=== PATIENT | female | born 1950 | race Caucasian/White ===

== ENCOUNTER → 2016-05-31 | Outpatient (CLI) | payer MEDICARE, OTHER | LOC: RAD 13:12 | PROVIDERS: ATTEND Physician Assistant | DX: M25.572 Pain in left ankle and joints of left foot (principal) ==

== ENCOUNTER → 2016-07-11 | Outpatient (CLI) | payer MEDICARE, OTHER | LOC: RAD 09:23 | PROVIDERS: ATTEND Psychiatry & Neurology Neurology | DX: R41.3 Other amnesia (principal) | CPT/HCPCS: 70450 ==

== ENCOUNTER → 2016-11-26 | Outpatient (CLI) | payer MEDICARE, OTHER ==
--- NOTE | 2016-11-26 15:11 | RADIOLOGY REPORT (SQ) ---
EXAM DESCRIPTION: CT SINUSES FOR ENT COMPLETED DATE/TIME: 11/26/2016 2:33 pm REASON FOR STUDY: RECURRENT SINUSITIS J01.41 ACUTE RECURRENT PANSINUSITIS COMPARISON: None. TECHNIQUE: Noncontrast scanning through the paranasal sinuses using bone algorithm. Reconstructed MPR images reviewed. All images stored on PACS. Images acquired for image guided surgery. All CT scanners at this facility use dose modulation, iterative reconstruction, and/or weight based d osing when appropriate to reduce radiation dose to as low as reasonably achievable (ALARA). [facility]: Dose Right [facility]: CareDose [facility]: Dose Right [facility]: Teradose 4D [facility]: [employer] RADIATION DOSE: mGy. FINDINGS: NASAL PASSAGES: Clear. No polyps or masses. MAXILLARY SINUSES: Well-pneumatized and clear. Bilateral surgical changes. ETHMOID SINUSES: Bilateral ethmoidectomy. Well-pneumatized and clear. SPHENOID SINUSES: Prominent mucous membrane thickening in the right sphenoid sinus. Left sphenoid si nus clear. No sphenoethmoid air cells or pneumatized pterygoid recess. No pneumatized dorsal sella. FRONTAL SINUSES: Well-pneumatized and clear. MASTOID AIR CELLS: Clear. ORBITS: Normal and symmetrical. NASAL SEPTUM: Midline. No nasal septal spurs. TEMPOROMANDIBULAR JOINTS: Normal. TURBINATES: No pneumatized turbinates. MUCOPERIOSTEAL THICKENING: No. MUCOCELE: No. OTHER: No other significant findings. IMPRESSION: MUCOUS MEMBRANE THICKENING IN THE RIGHT SPHENOID SINUS. SURGICAL CHANGES IN THE MAXILLA RY AND ETHMOID SINUSES. NO OTHER SIGNIFICANT FINDINGS. TECHNICAL DOCUMENTATION: JOB ID: [id number] Quality ID # 436: Final reports with documentation of one or more dose reduction techniques (e.g., Au tomated exposure control, adjustment of the mA and/or kV according to patient size, use of iterative reconstruction technique) 2010 [employer]- All Rights Reserved
== END ==
LOC: RAD 14:13
PROVIDERS: ATTEND Family Medicine Geriatric Medicine
DX: J01.41 Acute recurrent pansinusitis (principal)
CPT/HCPCS: 70486

== ENCOUNTER → 2017-02-18 | Outpatient (CLI) | payer MEDICARE, OTHER ==
[2017-02-18 13:36] LABS: ABSOLUTE EOSINOPHILS # (AUTO) 0.1 10^3/uL (0.0-0.6); ABSOLUTE LYMPHOCYTES (AUTO) 1.5 10^3/uL (0.5-4.7); ABSOLUTE MONOCYTES (AUTO) 0.5 10^3/uL (0.1-1.4); ABSOLUTE NEUT (AUTO) 2.2 10^3/uL (1.7-8.2); BASOPHILS % (AUTO) 0.5 % (0-2); EOSINOPHILS % (AUTO) 3.4 % (0-6); HEMATOCRIT 41.2 % (36.0-47.0); HEMOGLOBIN 13.9 g/dL (12.0-15.5); HGB HCT DIFFERENCE 0.5; LYMPHOCYTES % (AUTO) 34.7 % (13-45); MEAN CORPUSCULAR HEMOGLOBIN 30.5 pg (27.0-33.4); MEAN CORPUSCULAR HGB CONC 33.8 g/dL (32.0-36.0); MEAN CORPUSCULAR VOLUME 90 fl (80-97); MONOCYTES % (AUTO) 11.1 % (3-13); RED BLOOD COUNT 4.57 10^6/uL (3.72-5.28); RED CELL DISTRIBUTION WIDTH 13.2 % (11.5-14.0); SEGMENTED NEUTROPHILS % (AUTO) 50.3 % (42-78); WHITE BLOOD COUNT 4.4 10^3/uL (4.0-10.5)
[2017-02-18 13:53] LABS: ALANINE AMINOTRANSFERASE 65 U/L (9-52); ALBUMIN 4.3 g/dL (3.5-5.0); ALKALINE PHOSPHATASE 104 U/L (38-126); ANION GAP 11 (5-19); ASPARTATE AMINO TRANSFERASE 52 U/L (14-36); BILIRUBIN,DIRECT 0.3 mg/dL (0.0-0.4); BILIRUBIN,TOTAL 0.4 mg/dL (0.2-1.3); BLOOD UREA NITROGEN 8 mg/dL (7-20); CALCIUM 9.6 mg/dL (8.4-10.2); CARBON DIOXIDE 28 mmol/L (22-30); CHLORIDE 102 mmol/L (98-107); CHOLESTEROL 159.53 mg/dL (0-200); CREATININE RESULT 0.54 mg/dL (0.52-1.25); Direct HDL 78 mg/dL (>40); GLUCOSE 95 mg/dL (75-110); POTASSIUM 4.2 mmol/L (3.6-5.0); SODIUM 140.9 mmol/L (137-145); TOTAL PROTEIN 6.7 g/dL (6.3-8.2); TRIGLYCERIDES 70 mg/dL (<150)
[2017-02-18 14:04] LABS: DIRECT LDL 72 mg/dL (<100)
== END ==
LOC: OD 12:25
PROVIDERS: ATTEND Family Medicine Geriatric Medicine
DX: E78.5 Hyperlipidemia, unspecified (principal); I10 Essential (primary) hypertension; J44.9 Chronic obstructive pulmonary disease, unspecified; E55.9 Vitamin D deficiency, unspecified; Z79.899 Other long term (current) drug therapy
CPT/HCPCS: 36415; 80053; 80061; 82306; 84443; 85025

== ENCOUNTER → 2017-03-04 | Outpatient (CLI) | payer MEDICARE, OTHER | LOC: OD 15:38 | PROVIDERS: ATTEND Otolaryngology | DX: J30.9 Allergic rhinitis, unspecified (principal) | CPT/HCPCS: 36415; 82785 ==

== ENCOUNTER → 2017-05-15 | Outpatient (CLI) | payer MEDICARE, OTHER ==
[2017-05-15 15:13] LABS: GLUCOSE,FASTING 93 mg/dL (<110)
[2017-05-15 15:14] LABS: ALANINE AMINOTRANSFERASE 52 U/L (9-52); ASPARTATE AMINO TRANSFERASE 46 U/L (14-36)
[2017-05-15 16:45] LABS: FASTING GAC 94 (<110)
== END ==
LOC: OD 12:54
PROVIDERS: ATTEND Family Medicine Geriatric Medicine
DX: E16.2 Hypoglycemia, unspecified (principal); Z79.899 Other long term (current) drug therapy
CPT/HCPCS: 36415; 82951; 84450; 84460

== ENCOUNTER → 2017-05-16 | Outpatient (CLI) | payer MEDICARE, OTHER ==
--- NOTE | 2017-05-16 14:18 | RADIOLOGY REPORT (SQ) ---
EXAM DESCRIPTION: CAROTID DOPPLER COMPLETED DATE/TIME: 05/16/2017 1:52 pm REASON FOR STUDY: DIZZINESS AND GIDDINESS R42 DIZZINESS AND GIDDINESS COMPARISON: 09/07/2015. TECHNIQUE: Grayscale ultrasound, Doppler velocity and spectra, and color Doppler images acquired of the extra-cranial carotid and vertebral arteries. Images stored on PACS. LIMITATIONS: None. FINDINGS: RIGHT CAROTID CCA Velocities: Within normal limits. ICA Velocities Peak systolic 0.62 m/s. End diastolic 0.16 m/s. Proximal ICA/CCA peak systolic ratio 0.7. Heterogenous plaque in the carotid bulb. LEFT CAROTID CCA Velocities: Within normal limits. ICA Velocities Peak systolic 0.91 m/s. End diastolic 0.22 m/s. Proximal ICA/CCA peak systolic ratio 1.4. Heterogenous plaque in the carotid bulb. VERTEBRAL ARTERIES: Antegrade flow. Normal waveforms. SUBCLAVIAN ARTERIES: No finding. OTHER: No other significant finding. IMPRESSION: BILATERAL PLAQUE. NO HEMODYNAMICALLY SIGNIFICANT STENOSIS. COMMENT: Quality ID #195: Velocity criteria are extrapolated from the diameter data as defined by t he Society of Radiologists in Ultrasound Consensus Conference. Radiology 2003: 229; 340-346. TECHNICAL DOCUMENTATION: JOB ID: [id number] [employer]- All Rights Reserved
--- NOTE | 2017-05-16 15:19 | RADIOLOGY REPORT (SQ) ---
EXAM DESCRIPTION: CT HEAD WITHOUT COMPLETED DATE/TIME: 05/16/2017 2:12 pm REASON FOR STUDY: VERTIGO R42 DIZZINESS AND GIDDINESS COMPARISON: 07/11/2016 TECHNIQUE: Axial images acquired through the brain without intravenous contrast. Images reviewed wi th bone, brain and subdural windows. Images stored on PACS. All CT scanners at this facility use dose modulation, iterative reconstruction, and/or weight based d osing when appropriate to reduce radiation dose to as low as reasonably achievable (ALARA). [facility]: Dose Right [facility]: CareDose [facility]: Dose Right [facility]: Teradose 4D [facility]: [employer] RADIATION DOSE: CT Rad equipment meets quality standard of care and radiation dose reduction techniq ues were employed. CTDIvol: 49.0 mGy. DLP: 783 mGy-cm. mGy. LIMITATIONS: None. FINDINGS: VENTRICLES: Normal size and contour. CEREBRUM: No masses. No hemorrhage. No midline shift. No evidence for acute infarction. Normal gra y/white matter differentiation. No areas of low density in the white matter. CEREBELLUM: No masses. No hemorrhage. No alteration of density. No evidence for acute infarction. EXTRAAXIAL SPACES: No fluid collections. No masses. ORBITS AND GLOBE: No intra- or extraconal masses. Normal contour of globe without masses. CALVARIUM: No fracture. PARANASAL SINUSES: No fluid or mucosal thickening. SOFT TISSUES: No mass or hematoma. OTHER: Incidental high jugular bulb on the right. Small amount of fluid in the right mastoids. Calc ified vertebral arteries. IMPRESSION: No acute findings in the brain. EVIDENCE OF ACUTE STROKE: NO. COMMENT: Quality ID # 436: Final reports with documentation of one or more dose reduction techniques (e.g., Automated exposure control, adjustment of the mA and/or kV according to patient size, use of iterative reconstruction technique) TECHNICAL DOCUMENTATION: JOB ID: [id number] [employer]- All Rights Reserved
== END ==
LOC: RAD 12:51
PROVIDERS: ATTEND Family Medicine Geriatric Medicine
DX: R42 Dizziness and giddiness (principal)
CPT/HCPCS: 70450; 93880

== ENCOUNTER → 2017-05-17 | Outpatient (CLI) | payer MEDICARE, OTHER ==
--- NOTE | 2017-05-17 17:28 | RADIOLOGY REPORT (SQ) ---
EXAM DESCRIPTION: MRI CERVICAL SPINE WITHOUT COMPLETED DATE/TIME: 05/17/2017 4:52 pm REASON FOR STUDY: M50.30 OTHER CERVICAL DISC DEGENERATION,UNSPECIFIED CERVICAL REGION M51.37 M50.30 OTHER CERVICAL DISC DEGENERATION, UNSP CERVICAL REGIO M51.37 OTHER INTERVERTEBRAL DISC DEGENERATION , LUMBOSACRAL R COMPARISON: None. TECHNIQUE: Sagittal and Axial imaging includes T1, T2, STIR and gradient echo sequences. LIMITATIONS: None. FINDINGS: ALIGNMENT: Normal. VERTEBRAE: Intact. BONE MARROW: Normal. No marrow replacement or reactive changes. DISCS: Normal. No significant abnormal signal or loss of height. HARDWARE: None in the spine. CORD AND BASE OF BRAIN: Normal in size and signal intensity. SOFT TISSUES: No soft tissue masses. C1-C2: No significant spinal stenosis. C2-C3: No significant spinal stenosis or exit foraminal stenosis. C3-C4: No significant spinal stenosis or exit foraminal stenosis. C4-C5: Minimal posterior disc and osteophyte and mild uncovertebral spurring. Borderline mild exit f oraminal stenosis, right greater than left. No significant spinal stenosis. C5-C6: Minimal posterior disc and osteophyte and mild uncovertebral spurring. Possible mild right ex it foraminal stenosis. No significant spinal stenosis. C6-C7: No significant spinal stenosis or exit foraminal stenosis. C7-T1: No significant spinal stenosis or exit foraminal stenosis. UPPER THORACIC: Incompletely imaged. No significant spinal stenosis or exit foraminal stenosis. OTHER: No other significant finding. IMPRESSION: NORMAL MRI CERVICAL SPINE. TECHNICAL DOCUMENTATION: JOB ID: [id number] [email or web address]- All Rights Reserved
--- NOTE | 2017-05-17 17:34 | RADIOLOGY REPORT (SQ) ---
EXAM DESCRIPTION: MRI LUMBAR SPINE WITHOUT COMPLETED DATE/TIME: 05/17/2017 4:52 pm REASON FOR STUDY: M50.30 OTHER CERVICAL DISC DEGENERATION,UNSPECIFIED CERVICAL REGION M51.37 M50.30 OTHER CERVICAL DISC DEGENERATION, UNSP CERVICAL REGIO M51.37 OTHER INTERVERTEBRAL DISC DEGENERATION , LUMBOSACRAL R COMPARISON: None. TECHNIQUE: Sagittal and Axial imaging includes T1, T2, STIR and gradient echo sequences. Coronal T2/ HASTE imaging. LIMITATIONS: None. FINDINGS: VISUALIZED UPPER ABDOMEN: Limited evaluation. No acute or suspicious findings suggested. SEGMENTATION: No transitional anatomy. The lowest well-developed disc space is labeled L5-S1. ALIGNMENT: Anatomic. VERTEBRAE: Intact. BONE MARROW: Normal. No marrow replacement or reactive changes. DISC SIGNAL: Decreased height and signal. POSTERIOR ELEMENTS: Generally intact. No pars defect evident. HARDWARE: None in the spine. CORD AND CONUS: Normal in size and signal intensity. Conus at the appropriate level. SOFT TISSUES: No aortic aneurysm seen. No bulky retroperitoneal adenopathy or mass. No paraspinal mas s or fluid. L1-L2: No significant spinal stenosis or exit foraminal stenosis. L2-L3: Diffuse posterior annular disc bulge. Mild facet arthropathy. Mild spinal stenosis and mild to moderate exit foraminal stenosis. L3-L4: Diffuse posterior annular disc bulge. Moderate facet arthropathy. Mild to moderate spinal st enosis and exit foraminal stenosis, worse on the right. L4-L5: Diffuse posterior annular disc bulge. Moderate facet arthropathy. Moderate spinal stenosis a nd moderate to severe exit foraminal stenosis. L5-S1: Minimal disc bulge. Mild facet arthropathy. No significant spinal stenosis or exit foraminal stenosis. LOWER THORACIC: Incompletely imaged. No stenosis seen. SACRUM: Visualized upper sacrum intact. OTHER: No other significant findings. IMPRESSION: MULTILEVEL CHRONIC DEGENERATIVE CHANGES DESCRIBED ABOVE. TECHNICAL DOCUMENTATION: JOB ID: [id number] [employer]- All Rights Reserved
== END ==
LOC: RAD 15:33
PROVIDERS: ATTEND Physician Assistant
DX: M50.30 Other cervical disc degeneration, unspecified cervical region (principal); M51.37 Other intervertebral disc degeneration, lumbosacral region
CPT/HCPCS: 72141; 72148

== ENCOUNTER → 2017-05-23 | Outpatient (CLI) | payer MEDICARE, OTHER ==
[2017-05-23 14:58] LABS: A TYPE INFLUENZA AG NEGATIVE (NEGATIVE); B INFLUENZA AG NEGATIVE (NEGATIVE)
--- NOTE | 2017-05-23 15:04 | RADIOLOGY REPORT (SQ) ---
EXAM DESCRIPTION: CHEST PA/LATERAL COMPLETED DATE/TIME: 05/23/2017 2:26 pm REASON FOR STUDY: COUGH COMPARISON: Two-view chest 02/06/2016, 07/25/2010 AP chest 03/14/2009 EXAM PARAMETERS: NUMBER OF VIEWS: two views TECHNIQUE: Digital Frontal and Lateral radiographic views of the chest acquired. RADIATION DOSE: NA LIMITATIONS: none FINDINGS: LUNGS AND PLEURA: No opacities, masses or pneumothorax. No pleural effusion. MEDIASTINUM AND HILAR STRUCTURES: No masses or contour abnormalities. HEART AND VASCULAR STRUCTURES: Heart normal size. No evidence for failure. BONES: Osteopenic. No acute thoracic spine compression deformity HARDWARE: Clips right upper quadrant post cholecystectomy OTHER: No other significant finding. IMPRESSION: NO SIGNIFICANT RADIOGRAPHIC FINDING IN THE CHEST. TECHNICAL DOCUMENTATION: JOB ID: [id number] [employer]- All Rights Reserved
== END ==
LOC: OD 13:53
PROVIDERS: ATTEND Family Medicine Geriatric Medicine
DX: J11.1 Influenza due to unidentified influenza virus with other respiratory manifestations (principal); R05 Cough
CPT/HCPCS: 71046; 87804

== ENCOUNTER → 2017-06-24 | Outpatient (CLI) | payer MEDICARE, OTHER ==
--- NOTE | 2017-06-24 16:08 | RADIOLOGY REPORT (SQ) ---
EXAM DESCRIPTION: KNEE RIGHT 4 VIEWS COMPLETED DATE/TIME: 06/24/2017 1:46 pm REASON FOR STUDY: PAIN IN RIGHT LOWER LEG M79.661 PAIN IN RIGHT LOWER LEG Z79.899 OTHER [facility] (CURRENT) DRUG THERAPY COMPARISON: None. NUMBER OF VIEWS: Four views. TECHNIQUE: AP, lateral, and both oblique radiographic images acquired of the right knee. LIMITATIONS: None. FINDINGS: MINERALIZATION: Normal. BONES: No acute fracture or dislocation. No worrisome bone lesions. No significant osteophytes. JOINT: No effusion. No chondrocalcinosis. OTHER: No other significant finding. IMPRESSION: NEGATIVE STUDY OF THE RIGHT KNEE. NO EXPLANATION FOR PAIN. TECHNICAL DOCUMENTATION: JOB ID: [id number] [employer]- All Rights Reserved Reading location - IP/workstation name: [email or web address]
--- NOTE | 2017-06-24 16:08 | RADIOLOGY REPORT (SQ) ---
EXAM DESCRIPTION: TIBIA FIBULA RIGHT COMPLETED DATE/TIME: 06/24/2017 1:46 pm REASON FOR STUDY: PAIN IN RIGHT LOWER LEG M79.661 PAIN IN RIGHT LOWER LEG Z79.899 OTHER CUSTODIAL (CURRENT) DRUG THERAPY COMPARISON: None. NUMBER OF VIEWS: Two views. TECHNIQUE: Two radiographic images acquired of the right tibia and fibula to include the knee and an kle in at least one projection. LIMITATIONS: None. FINDINGS: MINERALIZATION: Normal. BONES: No acute fracture or dislocation. No worrisome bone lesions. No significant osteophytes. SOFT TISSUES: No obvious swelling or foreign body. OTHER: No other significant finding. IMPRESSION: NEGATIVE STUDY OF THE RIGHT TIBIA AND FIBULA. NO EXPLANATION FOR PAIN. TECHNICAL DOCUMENTATION: JOB ID: [id number] [employer]- All Rights Reserved Reading location - IP/workstation name: [email or web address]
== END ==
LOC: OD 13:17
PROVIDERS: ATTEND Family Medicine Geriatric Medicine
DX: M25.561 Pain in right knee (principal); M79.661 Pain in right lower leg; Z79.899 Other long term (current) drug therapy
CPT/HCPCS: 36415; 84550

== ENCOUNTER → 2017-11-25 | Outpatient (CLI) | payer MEDICARE, OTHER ==
[2017-11-25 13:25] LABS: ABSOLUTE EOSINOPHILS # (AUTO) 0.1 10^3/uL (0.0-0.6); ABSOLUTE LYMPHOCYTES (AUTO) 2.1 10^3/uL (0.5-4.7); ABSOLUTE MONOCYTES (AUTO) 0.5 10^3/uL (0.1-1.4); ABSOLUTE NEUT (AUTO) 3.2 10^3/uL (1.7-8.2); BASOPHILS % (AUTO) 0.6 % (0-2); EOSINOPHILS % (AUTO) 1.5 % (0-6); HEMOGLOBIN 13.4 g/dL (12.0-15.5); LYMPHOCYTES % (AUTO) 34.9 % (13-45); MEAN CORPUSCULAR HEMOGLOBIN 29.7 pg (27.0-33.4); MEAN CORPUSCULAR HGB CONC 33.6 g/dL (32.0-36.0); MEAN CORPUSCULAR VOLUME 89 fl (80-97); MONOCYTES % (AUTO) 9.1 % (3-13); PLATELET COUNT 287 10^3/uL (150-450); RED BLOOD COUNT 4.52 10^6/uL (3.72-5.28); SEGMENTED NEUTROPHILS % (AUTO) 53.9 % (42-78); TOTAL CELLS COUNTED % (AUTO) 100 %
[2017-11-25 13:45] LABS: ALANINE AMINOTRANSFERASE 56 U/L (9-52); ALKALINE PHOSPHATASE 68 U/L (38-126); ANION GAP 10 (5-19); ASPARTATE AMINO TRANSFERASE 41 U/L (14-36); BILIRUBIN,DIRECT 0.3 mg/dL (0.0-0.4); BILIRUBIN,TOTAL 0.3 mg/dL (0.2-1.3); BLOOD UREA NITROGEN 13 mg/dL (7-20); CALCIUM 9.7 mg/dL (8.4-10.2); CARBON DIOXIDE 28 mmol/L (22-30); CHLORIDE 99 mmol/L (98-107); CHOLESTEROL 220.55 mg/dL (0-200); GLUCOSE 84 mg/dL (75-110); POTASSIUM 4.3 mmol/L (3.6-5.0); TOTAL PROTEIN 6.5 g/dL (6.3-8.2); TRIGLYCERIDES 155 mg/dL (<150)
[2017-11-25 13:56] LABS: DIRECT LDL 118 mg/dL (<100)
== END ==
LOC: OD 12:10
PROVIDERS: ATTEND Family Medicine Geriatric Medicine
DX: E78.5 Hyperlipidemia, unspecified (principal); I10 Essential (primary) hypertension; Z79.899 Other long term (current) drug therapy
CPT/HCPCS: 36415; 80053; 80061; 85025

== ENCOUNTER → 2017-12-05 | Outpatient (CLI) | payer MEDICARE, OTHER ==
--- NOTE | 2017-12-05 15:54 | RADIOLOGY REPORT (SQ) ---
EXAM DESCRIPTION: CT FACIAL AREA WITHOUT COMPLETED DATE/TIME: 12/05/2017 1:58 pm REASON FOR STUDY: CHRONIC SINUSITIS (J32.9) J32.9 CHRONIC SINUSITIS, UNSPECIFIED COMPARISON: None. TECHNIQUE: Noncontrast scanning through the paranasal sinuses using bone algorithm. Reconstructed MPR images reviewed. All images stored on PACS. Images acquired for image guided surgery. All CT scanners at this facility use dose modulation, iterative reconstruction, and/or weight based d osing when appropriate to reduce radiation dose to as low as reasonably achievable (ALARA). [facility]: Dose Right [facility]: CareDose [facility]: Dose Right [facility]: Teradose 4D [facility]: [employer] RADIATION DOSE: 44.3mGy. FINDINGS: NASAL PASSAGES: Clear. No polyps or masses. Post resection of the middle turbinates. OSTEOMEATAL UNITS AND NASOFRONTAL DUCTS: Post resection of the ostiomeatal complexes with widely carbajal nt maxillary outlets. No agger nasi or Isak cells. MAXILLARY SINUSES: Well-pneumatized and clear. ETHMOID SINUSES: Post resection of the ethmoid septa. Common ethmoid cavity on the left, anterior co mmon ethmoid cavity on the right are clear. No mucous membrane thickening or air fluid levels. SPHENOID SINUSES: Well-pneumatized. Minimal debris in the right sphenoid sinus. Left sphenoid sinu s is clear No sphenoethmoid air cells or pneumatized pterygoid recess. No pneumatized dorsal sella. FRONTAL SINUSES: Well-pneumatized and clear. MASTOID AIR CELLS: Clear. ORBITS: No masses. Post cataract surgery bilaterally. NASAL SEPTUM: Midline. No nasal septal spurs. TEMPOROMANDIBULAR JOINTS: Normal. MUCOPERIOSTEAL THICKENING: No. MUCOCELE: No. OTHER: Inferior brain parenchyma in the field of view is unremarkable. IMPRESSION: Post endoscopic sinus surgery with resection of ethmoid septa, bilateral middle turbinat es and ostiomeatal complexes No CT evidence of acute sinusitis TECHNICAL DOCUMENTATION: JOB ID: [id number] Quality ID # 436: Final reports with documentation of one or more dose reduction techniques (e.g., Au tomated exposure control, adjustment of the mA and/or kV according to patient size, use of iterative reconstruction technique) 2010 [employer]- All Rights Reserved Reading location - IP/workstation name: [email or web address]
== END ==
LOC: RAD 13:45
PROVIDERS: ATTEND Internal Medicine
DX: J32.9 Chronic sinusitis, unspecified (principal)
CPT/HCPCS: 70486

== ENCOUNTER → 2017-12-30 | Outpatient (CLI) | payer MEDICARE, OTHER ==
[2017-12-30 14:14] LABS: CHOLESTEROL 181.84 mg/dL (0-200); TRIGLYCERIDES 107 mg/dL (<150)
[2017-12-30 14:25] LABS: DIRECT LDL 87 mg/dL (<100)
== END ==
LOC: OD 12:14
PROVIDERS: ATTEND Internal Medicine
DX: E78.5 Hyperlipidemia, unspecified (principal)
CPT/HCPCS: 36415; 80061

== ENCOUNTER → 2018-02-24 | Outpatient (CLI) | payer MEDICARE, OTHER ==
[2018-02-24 10:59] LABS: CHOLESTEROL 152.48 mg/dL (0-200); TRIGLYCERIDES 75 mg/dL (<150)
[2018-02-24 11:10] LABS: DIRECT LDL 76 mg/dL (<100)
== END ==
LOC: OD 10:00
PROVIDERS: ATTEND Internal Medicine
DX: E78.5 Hyperlipidemia, unspecified (principal)
CPT/HCPCS: 36415; 80061

== ENCOUNTER → 2018-04-01 | Outpatient (CLI) | payer MEDICARE, OTHER ==
[2018-04-01 14:37] LABS: ABSOLUTE EOSINOPHILS # (AUTO) 0.1 10^3/uL (0.0-0.6); ABSOLUTE LYMPHOCYTES (AUTO) 1.8 10^3/uL (0.5-4.7); ABSOLUTE MONOCYTES (AUTO) 0.5 10^3/uL (0.1-1.4); ABSOLUTE NEUT (AUTO) 2.4 10^3/uL (1.7-8.2); BASOPHILS % (AUTO) 0.6 % (0-2); EOSINOPHILS % (AUTO) 2.2 % (0-6); HEMOGLOBIN 13.7 g/dL (12.0-15.5); LYMPHOCYTES % (AUTO) 37.1 % (13-45); MEAN CORPUSCULAR HEMOGLOBIN 30.7 pg (27.0-33.4); MEAN CORPUSCULAR HGB CONC 34.2 g/dL (32.0-36.0); MEAN CORPUSCULAR VOLUME 90 fl (80-97); PLATELET COUNT 288 10^3/uL (150-450); RED BLOOD COUNT 4.47 10^6/uL (3.72-5.28); RED CELL DISTRIBUTION WIDTH 13.7 % (11.5-14.0); SEGMENTED NEUTROPHILS % (AUTO) 49.1 % (42-78); TOTAL CELLS COUNTED % (AUTO) 100 %; WHITE BLOOD COUNT 4.9 10^3/uL (4.0-10.5)
[2018-04-01 15:05] LABS: ALANINE AMINOTRANSFERASE 57 U/L (9-52); ALBUMIN 4.2 g/dL (3.5-5.0); ALKALINE PHOSPHATASE 76 U/L (38-126); ANION GAP 8 (5-19); ASPARTATE AMINO TRANSFERASE 42 U/L (14-36); BILIRUBIN,DIRECT 0.2 mg/dL (0.0-0.4); BILIRUBIN,TOTAL 0.4 mg/dL (0.2-1.3); BLOOD UREA NITROGEN 8 mg/dL (7-20); CARBON DIOXIDE 30 mmol/L (22-30); CHLORIDE 101 mmol/L (98-107); GLUCOSE 98 mg/dL (75-110); POTASSIUM 4.2 mmol/L (3.6-5.0); SODIUM 138.8 mmol/L (137-145); TOTAL PROTEIN 6.6 g/dL (6.3-8.2)
[2018-04-01 15:15] LABS: ERYTHROCYTE SEDIMENTATION RATE 18 mm/hr (0-30)
== END ==
LOC: OD 13:35
PROVIDERS: ATTEND Internal Medicine
DX: D64.9 Anemia, unspecified (principal); E03.9 Hypothyroidism, unspecified; R10.0 Acute abdomen; D33.3 Benign neoplasm of cranial nerves
CPT/HCPCS: 36415; 80053; 82533; 82550; 84443; 85025; 85652

== ENCOUNTER → 2018-04-16 | Outpatient (CLI) | payer MEDICARE, OTHER ==
--- NOTE | 2018-04-16 15:06 | RADIOLOGY REPORT (SQ) ---
EXAM DESCRIPTION: CHEST PA/LATERAL COMPLETED DATE/TIME: 04/16/2018 2:50 pm REASON FOR STUDY: PNEUMONIA, UNSPECIFIED ORGANISM COMPARISON: Chest films 03/14/2009, 07/25/2010, 02/06/2016 EXAM PARAMETERS: NUMBER OF VIEWS: two views TECHNIQUE: Digital Frontal and Lateral radiographic views of the chest acquired. RADIATION DOSE: NA LIMITATIONS: none FINDINGS: LUNGS AND PLEURA: Minimal bandlike atelectasis or scarring is present at both lung bases. No fluffy alveolar infiltrates worrisome for edema or pneumonia. No pleural effusion. No pneumothor ax. MEDIASTINUM AND HILAR STRUCTURES: No masses or contour abnormalities. HEART AND VASCULAR STRUCTURES: Heart normal size. No evidence for failure. BONES: No acute findings. HARDWARE: None in the chest. OTHER: No other significant finding. IMPRESSION: Minimal bandlike airspace disease both bases likely atelectasis. TECHNICAL DOCUMENTATION: JOB ID: [id number] [employer]- All Rights Reserved Reading location - IP/workstation name: [email or web address]
== END ==
LOC: OD 14:30
PROVIDERS: ATTEND Internal Medicine
DX: J18.9 Pneumonia, unspecified organism (principal)
CPT/HCPCS: 71046

== ENCOUNTER → 2018-04-28 | Outpatient (CLI) | payer MEDICARE, OTHER ==
[2018-04-28 13:21] LABS: ABSOLUTE EOSINOPHILS # (AUTO) 0.1 10^3/uL (0.0-0.6); ABSOLUTE LYMPHOCYTES (AUTO) 3.2 10^3/uL (0.5-4.7); ABSOLUTE MONOCYTES (AUTO) 0.6 10^3/uL (0.1-1.4); ABSOLUTE NEUT (AUTO) 5.2 10^3/uL (1.7-8.2); BASOPHILS % (AUTO) 0.3 % (0-2); EOSINOPHILS % (AUTO) 0.7 % (0-6); HEMATOCRIT 38.3 % (36.0-47.0); HEMOGLOBIN 13.1 g/dL (12.0-15.5); LYMPHOCYTES % (AUTO) 34.8 % (13-45); MEAN CORPUSCULAR HEMOGLOBIN 30.5 pg (27.0-33.4); MEAN CORPUSCULAR HGB CONC 34.2 g/dL (32.0-36.0); MEAN CORPUSCULAR VOLUME 89 fl (80-97); PLATELET COUNT 338 10^3/uL (150-450); RED BLOOD COUNT 4.29 10^6/uL (3.72-5.28); RED CELL DISTRIBUTION WIDTH 13.9 % (11.5-14.0); SEGMENTED NEUTROPHILS % (AUTO) 57.2 % (42-78); TOTAL CELLS COUNTED % (AUTO) 100 %; WHITE BLOOD COUNT 9.1 10^3/uL (4.0-10.5)
[2018-04-29 15:38] LABS: M-SPIKE % UR Not Observed % (Not Observ); PROTEIN TOTAL URINE 6.2 mg/dL (Not Estab.)
[2018-04-30 16:43] LABS: A/G RATIO 1.4 (0.7-1.7); ALBUMIN 2 3.6 g/dL (2.9-4.4); ALPHA-2-GLOBULIN 2 0.9 g/dL (0.4-1.0); GAMMA GLOBULIN 0.5 g/dL (0.4-1.8); GLOBULIN TOTAL 2.5 g/dL (2.2-3.9); MONOCLONAL SPIKE Not Observed g/dL (Not Observ); PROTEIN TOTAL SERUM 6.1 g/dL (6.0-8.5)
== END ==
LOC: OD 12:34
PROVIDERS: ATTEND Internal Medicine
DX: R50.9 Fever, unspecified (principal)
CPT/HCPCS: 36415; 84165; 84166; 85025

== ENCOUNTER → 2018-05-14 | Outpatient (CLI) | payer MEDICARE, OTHER ==
--- NOTE | 2018-05-14 15:50 | RADIOLOGY REPORT (SQ) ---
EXAM DESCRIPTION: HIP RIGHT AP/LATERAL COMPLETED DATE/TIME: 05/14/2018 3:22 pm REASON FOR STUDY: PAIN IN RIGHT HIP M25.551 PAIN IN RIGHT HIP COMPARISON: None. NUMBER OF VIEWS: Two views. TECHNIQUE: AP pelvis and additional frog-leg view of the right hip. LIMITATIONS: None. FINDINGS: MINERALIZATION: Normal. RIGHT HIP: No fracture or dislocation. No worrisome bone lesions. No contour deformity. No joint sp rachelle narrowing. LEFT HIP: No fracture or dislocation. No worrisome bone lesions. PUBIS AND ISCHIUM: No fracture. PELVIS: No fracture. SACRUM: No fracture or dislocation. No worrisome bone lesions. LOWER LUMBAR SPINE: No fracture or dislocation. No worrisome bone lesions. Degenerative disc disease . SOFT TISSUES: No findings. OTHER: No other significant finding. IMPRESSION: NEGATIVE STUDY OF THE RIGHT HIP. NO EXPLANATION FOR PAIN. TECHNICAL DOCUMENTATION: JOB ID: [id number] [employer]- All Rights Reserved Reading location - IP/workstation name: [email or web address]
== END ==
LOC: OD 14:59
PROVIDERS: ATTEND Physician Assistant
DX: M25.551 Pain in right hip (principal)

== ENCOUNTER → 2018-06-19 | Outpatient (CLI) | payer MEDICARE, OTHER ==
--- NOTE | 2018-06-19 13:07 | RADIOLOGY REPORT (SQ) ---
EXAM DESCRIPTION: MRI RT LOWER JOINT WITHOUT COMPLETED DATE/TIME: 06/19/2018 12:49 pm REASON FOR STUDY: PAIN IN RIGHT HIP M25.551 PAIN IN RIGHT HIP COMPARISON: Right hip two views 05/14/2018 MRI lumbar spine 05/17/2017 TECHNIQUE: Righthip images acquired and stored on PACS. Multiplanar images to include fat sensitive sequences as T1, fluid sensitive sequences as T2/STIR and gradient echo sequences. Large FOV fat and fluid sensitive sequences include pelvis and opposite hip. LIMITATIONS: None. FINDINGS: BONE CORTEX AND MARROW: No generalized marrow replacement. No occult fracture. No worriso me bone lesions. RIGHT HIP: FEMORAL HEAD: No occult fracture. No osteophytes or subchondral cysts. Normal sphericity of femoral h ead/neck junction. No significant effusion. ACETABULUM: Normal morphology. Subcortical cysts right acetabular roof on coronal image 13. LABRUM: Diffuse degeneration right acetabular labrum without paralabral cyst TROCHANTER: Small trochanteric bursal effusion. Diffuse edema/fluid at the insertions of the gluteu s medius and gluteus minimus. LEFT HIP: Limited evaluation. No worrisome bone lesions. No significant effusion. PELVIS, LOWER LUMBAR SPINE, SACROILIAC JOINTS: PELVIS : No insufficiency/stress fractures. No significant degenerative changes. Sacroiliac joints normal. L SPINE: No significant osteophytes or degenerative changes of the visualized lumbar spine. MUSCLES AND SOFT TISSUES: Adductors and piriformis normal. Iliopsoas bursa without fluid. On the ri ght side, there is tendinopathy at the proximal attachment of the hamstring tendon on coronal series 9, image 12. Partial thickness tear of the left hamstring attachment orbit seen on series 9, image 1 8. PELVIC SOFT TISSUES: No masses or adenopathy. SCIATIC NERVE: Identified, without masses or abnormal signal. OTHER: No other significant finding. IMPRESSION: Right-sided trochanteric bursitis with inflammation at the attachments of the gluteal te ndons onto the right greater trochanter. Bilateral tendinopathy at the hamstring attachment, with partial-thickness tear on the left TECHNICAL DOCUMENTATION: JOB ID: [id number] [employer]- All Rights Reserved Reading location - IP/workstation name: [email or web address]
== END ==
LOC: RAD 11:56
PROVIDERS: ATTEND Physician Assistant
DX: M25.551 Pain in right hip (principal); M70.61 Trochanteric bursitis, right hip

== ENCOUNTER → 2018-07-03 | Outpatient (CLI) | payer MEDICARE, OTHER ==
[2018-07-03 14:22] LABS: CHOLESTEROL 172.36 mg/dL (0-200); TRIGLYCERIDES 124 mg/dL (<150)
[2018-07-03 14:34] LABS: DIRECT LDL 84 mg/dL (<100)
== END ==
LOC: OD 12:27
PROVIDERS: ATTEND Internal Medicine
DX: E78.5 Hyperlipidemia, unspecified (principal); E55.9 Vitamin D deficiency, unspecified
CPT/HCPCS: 36415; 80061; 82306

== ENCOUNTER → 2018-08-15 | Outpatient (CLI) | payer MEDICARE, OTHER ==
--- NOTE | 2018-08-15 11:53 | RADIOLOGY REPORT (SQ) ---
EXAM DESCRIPTION: KNEE RIGHT 3 VIEWS COMPLETED DATE/TIME: 08/15/2018 11:44 am REASON FOR STUDY: PAIN IN RT KNEE M25.561 PAIN IN RIGHT KNEE COMPARISON: None. NUMBER OF VIEWS: Three views. TECHNIQUE: AP, lateral, and sunrise patella radiographic images acquired of the right knee. LIMITATIONS: None. FINDINGS: MINERALIZATION: Normal. BONES: No acute fracture or dislocation. No worrisome bone lesions. JOINT: No effusion. SOFT TISSUES: No soft tissue swelling. No radio-opaque foreign body. OTHER: No other significant finding. IMPRESSION: NEGATIVE STUDY OF THE RIGHT KNEE. NO RADIOGRAPHIC EVIDENCE OF ACUTE INJURY. TECHNICAL DOCUMENTATION: JOB ID: [id number] [employer]- All Rights Reserved Reading location - IP/workstation name: [email or web address]
== END ==
LOC: OD 11:28
PROVIDERS: ATTEND Physician Assistant
DX: M25.561 Pain in right knee (principal)

== ENCOUNTER → 2018-10-21 | Outpatient (CLI) | payer MEDICARE, OTHER ==
[2018-10-21 15:16] LABS: ABSOLUTE EOSINOPHILS # (AUTO) 0.1 10^3/uL (0.0-0.6); ABSOLUTE LYMPHOCYTES (AUTO) 1.8 10^3/uL (0.5-4.7); ABSOLUTE MONOCYTES (AUTO) 0.7 10^3/uL (0.1-1.4); ABSOLUTE NEUT (AUTO) 6.9 10^3/uL (1.7-8.2); BASOPHILS % (AUTO) 0.2 % (0-2); EOSINOPHILS % (AUTO) 0.8 % (0-6); HEMATOCRIT 39.4 % (36.0-47.0); HEMOGLOBIN 13.1 g/dL (12.0-15.5); LYMPHOCYTES % (AUTO) 18.8 % (13-45); MEAN CORPUSCULAR HEMOGLOBIN 29.4 pg (27.0-33.4); MEAN CORPUSCULAR HGB CONC 33.3 g/dL (32.0-36.0); MEAN CORPUSCULAR VOLUME 88 fl (80-97); MONOCYTES % (AUTO) 7.7 % (3-13); PLATELET COUNT 343 10^3/uL (150-450); RED BLOOD COUNT 4.46 10^6/uL (3.72-5.28); RED CELL DISTRIBUTION WIDTH 14.9 % (11.5-14.0); SEGMENTED NEUTROPHILS % (AUTO) 72.5 % (42-78); TOTAL CELLS COUNTED % (AUTO) 100 %; WHITE BLOOD COUNT 9.5 10^3/uL (4.0-10.5)
[2018-10-23 14:36] LABS: A/G RATIO 1.5 (0.7-1.7); ALBUMIN 2 3.6 g/dL (2.9-4.4); ALPHA-2-GLOBULIN 2 0.8 g/dL (0.4-1.0); BETA GLOBULINS 0.9 g/dL (0.7-1.3); GAMMA GLOBULIN 0.5 g/dL (0.4-1.8); GLOBULIN TOTAL 2.4 g/dL (2.2-3.9); MONOCLONAL SPIKE Not Observed g/dL (Not Observ)
[2018-10-23 15:36] LABS: M-SPIKE % UR Not Observed % (Not Observ); PROTEIN TOTAL URINE 7.7 mg/dL (Not Estab.)
== END ==
LOC: OD 13:53
PROVIDERS: ATTEND Internal Medicine
DX: R50.9 Fever, unspecified (principal)
CPT/HCPCS: 36415; 82784; 84165; 84166; 85025

== ENCOUNTER → 2018-11-08 | Outpatient (CLI) | payer MEDICARE, OTHER ==
--- NOTE | 2018-11-10 12:47 | RADIOLOGY REPORT (SQ) ---
EXAM DESCRIPTION: CT FACIAL AREA WITHOUT COMPLETED DATE/TIME: 11/08/2018 10:58 am REASON FOR STUDY: (J32.9)CHRONIC SINUSITIS, UNSPECIFIED J32.9 CHRONIC SINUSITIS, UNSPECIFIED COMPARISON: None. TECHNIQUE: Noncontrasted images through the facial bones and orbits windowed for bone and soft tissu e. Additional coronal and sagittal reconstructed images reviewed. All images stored on PACS. All CT scanners at this facility use dose modulation, iterative reconstruction, and/or weight based d osing when appropriate to reduce radiation dose to as low as reasonably achievable (ALARA). [facility]: Dose Right [facility]: CareDose [facility]: Dose Right [facility]: Teradose 4D [facility]: [employer] RADIATION DOSE: mGy. LIMITATIONS: None. FINDINGS: FACIAL BONES: No fracture or bone lesion. ORBITS: Intact. No fracture. Symmetric intact globes and retroorbital soft tissues. PARANASAL SINUSES: Bilateral nasoantral windows. There is a small mucous retention cyst in the right sphenoid sinus. No mucoperiosteal thickening is seen otherwise. No nasal polyps. Maxillary sinus o utlets are patent. SOFT TISSUES: No mass or edema. INFERIOR BRAIN: Limited view. No acute findings. OTHER: No other significant finding. IMPRESSION: Surgical changes. Small mucous retention cyst in the right sphenoid sinus. TECHNICAL DOCUMENTATION: JOB ID: [id number] Quality ID # 436: Final reports with documentation of one or more dose reduction techniques (e.g., Au tomated exposure control, adjustment of the mA and/or kV according to patient size, use of iterative reconstruction technique) 2010 [employer]- All Rights Reserved Reading location - IP/workstation name: [email or web address]
== END ==
LOC: RAD 10:39
PROVIDERS: ATTEND Internal Medicine
DX: J34.1 Cyst and mucocele of nose and nasal sinus (principal); J32.9 Chronic sinusitis, unspecified
CPT/HCPCS: 70486

== ENCOUNTER 2018-11-21 15:28 | Emergency (ER) | payer MEDICARE, OTHER ==
--- NOTE | 2018-11-21 17:06 | ER Document Report ---
ED Medical Screen (RME) - General Chief Complaint: Fall Injury Stated Complaint: FALL/LEFT KNEE INJURY Time Seen by Provider: 11/21/18 16:42 Primary Care Provider: SMILEY VELÁZQUEZ MD [Primary Care Provider] - Follow up as needed Mode of Arrival: Ambulatory Information source: Patient Notes: HPI: 68-year-old female with a history of hypertension, hyperlipidemia, anxiety, peripheral neuropathy, chronic pain on oxycodone 10 mg 4 times daily as needed for pain here after an accidental mechanical fall over her dog that happened about 7 hours ago. She combines of left knee pain, right elbow pain, and a left forearm abrasion. No numbness or tingling. No preceding fall symptoms. No surgeries on these areas. Denies intoxication. No blood thinners. No pain anywhere else. No other complaints at this time. She took 2 of her oxycodone prior to arrival and does not want anything else for pain and is pain controlled. she is able to walk. last tdap was 2yrs ago. she is right handed. she denies hittng her head, no loc. no vomiting. ROS neg to include 10 systems, unless mentioned in the hpi. PE:>> PHYSICAL_EXAM: GENERAL_APPEARANCE: alert, cooperative, no obvious discomfort. Pleasant, obese elderly white female, smiling, speaking in full sentences, easily sitting up, in no sign of pain or resp distress. VITALS: reviewed, see vital signs table. HEAD: no_swelling\tenderness on the head, normocephalic, atraumatic, NECK: supple, no_neck_tenderness. full rom. full strength. no sign of central cord syndrome HEART: RRR LUNGS: CTAB BACK: no_back_tenderness EXTREMITIES: good pulses in all extremities, left knee: Anterior and posterior joint lines are tender to palpate. Patella is not tender to palpate. There is no tenderness over the hip or ankle or rest of the foot or leg. The right elbow has tenderness over the medial and lateral epicondyles. There is noolecranon bursitis or sign of septic joint. No sign of gout. Negative anterior/posterior drawer test. No pain on valgus or varus strain. No foot drop. Negative Homans sign. Negative Nava squeeze. areas Have no erythema, mild swelling, mild- mod tenderness and no_abrasions\lacerations other than a few superficial abrasions to the left midshaft forearm that do not require suture repair. Not actively bleeding. No sign of infection. Full rom and full strength. no other swelling or ttp. slight antalgic gait secondary to pain only. brisk cap refill. 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 no shortening or rotation of the limbs or other obvious deformities to suggest trauma. SKIN: warm, dry, good_color. no rash. no overlying skin changes to otherwise sugggest trauma NEURO: cerebellar function intact, motor_intact and sensory_intact in injured_extremity. MDM: I have ordered labs and initial work-up and patient will be transferred to the main ER for further work-up. I have greeted and performed a rapid initial assessment of this patient. A comprehensive ED assessment and evaluation of the patient, analysis of test results and completion of medical decision making process will be conducted by an additional ED providers. Documentation achieved through voice recording which my lead to some occasional accidental typographical errors. Extensive efforts have been made to proof read documentation to make sure these are the least as possible Category Date Time Status Dressing/Wound Care (ED) NOW Care 11/21/18 16:51 Ordered Left Knee [KNEE LEFT 3 VIEWS] [RAD] Stat Exams 11/21/18 16:50 Ordered Right Elbow [ELBOW RIGHT AP/LAT] [RAD] Stat Exams 11/21/18 16:51 Ordered Temp Pulse Resp BP Pulse Ox 11/21/18 15:54 98.5 F 74 16 110/68 98 TRAVEL OUTSIDE OF THE [place] IN LAST 30 DAYS: No - Related Data Allergies/Adverse Reactions: Penicillins Allergy (Verified 11/21/18 15:37) HIVES/ITCHING Past Medical History - Social History Chew tobacco use (# tins/day): No Frequency of alcohol use: None Drug Abuse: None - Past Medical History Cardiac Medical History: Reports: Hx Hypertension Denies: Hx Heart Attack Pulmonary Medical History: Reports: Hx Asthma, Hx COPD Neurological Medical History: Denies: Hx Cerebrovascular Accident, Hx Seizures Renal/ Medical History: Denies: Hx Peritoneal Dialysis GI Medical History: Denies: Hx Hepatitis, Hx Hiatal Hernia, Hx Ulcer Musculoskeltal Medical History: Reports Hx Fibromyalgia Infectious Medical History: Denies: Hx Hepatitis Past Surgical History: Denies: Hx Hysterectomy, Hx Mastectomy, Hx Open Heart Surgery, Hx Pacemaker - Immunizations Hx Diphtheria, Pertussis, Tetanus Vaccination: Yes Physical Exam - Vital signs Vitals: Temp Pulse Resp BP Pulse Ox 98.5 F 74 16 110/68 98 11/21/18 15:54 11/21/18 15:54 11/21/18 15:54 11/21/18 15:54 11/21/18 15:54 Course - Vital Signs Vital signs: Temp Pulse Resp BP Pulse Ox 98.5 F 74 16 110/68 98 11/21/18 15:54 11/21/18 15:54 11/21/18 15:54 11/21/18 15:54 11/21/18 15:54 Doctor's Discharge - Discharge Referrals: SMILEY VELÁZQUEZ MD [Primary Care Provider] - Follow up as needed
--- NOTE | 2018-11-21 17:34 | RADIOLOGY REPORT (SQ) ---
EXAM DESCRIPTION: ELBOW RIGHT AP/LAT COMPLETED DATE/TIME: 11/21/2018 5:22 pm REASON FOR STUDY: fall, pain COMPARISON: None. EXAM PARAMETERS: NUMBER OF VIEWS: Two view. TECHNIQUE: AP and lateral radiographic images acquired of the right elbow. LIMITATIONS: None. FINDINGS: MINERALIZATION: Normal. BONES: No acute fracture or dislocation. No worrisome bone lesions. JOINTS: Moderate effusion. SOFT TISSUES: No significant soft tissue swelling. No radiopaque foreign body. OTHER: No other significant finding. IMPRESSION: NO FRACTURE.Moderate effusion. TECHNICAL DOCUMENTATION: JOB ID: [id number] [place]-72 2010 [employer]- All Rights Reserved Reading location - IP/workstation name: [email or web address]
--- NOTE | 2018-11-21 17:39 | RADIOLOGY REPORT (SQ) ---
EXAM DESCRIPTION: KNEE LEFT 3 VIEWS COMPLETED DATE/TIME: 11/21/2018 5:22 pm REASON FOR STUDY: fall COMPARISON: None. EXAM PARAMETERS: NUMBER OF VIEWS: Three views. TECHNIQUE: AP, lateral and oblique radiographic images acquired of the left knee. LIMITATIONS: None. FINDINGS: MINERALIZATION: Normal. BONES: No acute fracture or dislocation. No worrisome bone lesions. JOINTS: No effusion. SOFT TISSUES: No significant soft tissue swelling. No radiopaque foreign body. OTHER: No other significant finding. IMPRESSION: NO FRACTURE. TECHNICAL DOCUMENTATION: JOB ID: [id number] [place]-72 2010 [employer]- All Rights Reserved Reading location - IP/workstation name: [employer]
--- NOTE | 2018-11-21 18:01 | ER Document Report ---
HPI - HPI Patient complains to provider of: fall Time Seen by Provider: 11/21/18 16:42 Onset: This morning Onset/Duration: Sudden, Persistent Quality of pain: Achy Severity: Mild Pain Level: 2 Context: 68-year-old female with a history of hypertension, hyperlipidemia, anxiety, peripheral neuropathy, chronic pain on oxycodone 10 mg 4 times daily as needed for pain here after an accidental mechanical fall over her dog that happened about 7 hours ago. She combines of left knee pain, right elbow pain, and a left forearm abrasion. No numbness or tingling. No preceding fall symptoms. No surgeries on these areas. Denies intoxication. No blood thinners. No pain anywhere else. No other complaints at this time. She took 2 of her oxycodone prior to arrival and does not want anything else for pain and is pain controlled. she is able to walk. last tdap was 2yrs ago. she is right handed. she denies hitting her head, no loc. no vomiting. i initially saw this pt as a provider in triage and then once her imaging returned and she still didn't have a room to be evaluated in the back by another provider, i completed her care by informing her of her studies, results, and gave her dc instructions and plan of care. Exacerbated by: Movement, Walking Relieved by: Remaining still Similar symptoms previously: No Recently seen / treated by doctor: No - ROS Systems Reviewed and Negative: Yes All other systems reviewed and negative - to include 10 systems, unless mentioned in the hpi - REPRODUCTIVE Reproductive: DENIES: : - DERM Skin Color: Normal, [place] Past Medical History - General Information source: Patient - Social History Smoking Status: Unknown if Ever Smoked Chew tobacco use (# tins/day): No Frequency of alcohol use: None Drug Abuse: None Family History: Reviewed & Not Pertinent Patient has suicidal ideation: No Patient has homicidal ideation: No - Past Medical History Cardiac Medical History: Reports: Hx Hypertension Denies: Hx Heart Attack Pulmonary Medical History: Reports: Hx COPD - not on home 02 Neurological Medical History: Denies: Hx Cerebrovascular Accident, Hx Seizures Endocrine Medical History: Reports: None Renal/ Medical History: Denies: Hx Peritoneal Dialysis GI Medical History: Denies: Hx Hepatitis, Hx Hiatal Hernia, Hx Ulcer Musculoskeletal Medical History: Reports Hx Fibromyalgia Infectious Medical History: Denies: Hx Hepatitis Past Surgical History: Denies: Hx Hysterectomy, Hx Mastectomy, Hx Open Heart Surgery, Hx Pacemaker - Immunizations Immunizations up to date: Yes Hx Diphtheria, Pertussis, Tetanus Vaccination: Yes Vertical Provider Document - CONSTITUTIONAL Exam Limitations: No Limitations Notes: PHYSICAL_EXAM: GENERAL_APPEARANCE: alert, cooperative, no obvious discomfort. Pleasant, obese elderly white female, smiling, speaking in full sentences, easily sitting up, in no sign of pain or resp distress. adult female friend at bedside VITALS: reviewed, see vital signs table. HEAD: normocephalic and atraumatic, no raccoon eyes, no farrell signs. no swelling or ttp. EARS: canals_clear_bilat, TMs_clear, no_discharge_from_ears. no hemotympanum EYES: EOMI without pain, conjunctiva_clear. PERRL, eyelids wnl. no drainage. no sign of orbital/periorbital cellulitis. no hyphema. no nystagmus MOUTH: no_lacerations inside_mouth. no broken teeth. no tmj clicking or ttp. pharynx wnl. tongue protrudes midline. no tongue or lip swelling. NOSE: no drainage or epistaxis NECK: no_swelling\tenderness on the neck. no midline bony tenderness. no step offs or deformities. full rom. full strength. no meningeal signs. no sign of central cord syndrome. HEART: normal_rate, normal_rhythm, LUNGS: ctab. no chest wall ttp. no overlying skin changes. no flail chest or crepitation. ABDOMEN: normal_BS, soft, no_abd_tenderness, no rebound, guarding, distension, or peritoneal signs. no cva ttp. no overlying skin changes. BACK: no midline bony tenderness. no step offs or deformities RECTAL: deferred, however, no sign of loss of bowel or bladder or soiling of clothing. EXTREMITIES: good pulses in all extremities, left knee: Anterior and posterior joint lines are tender to palpate. Patella is not tender to palpate. There is no tenderness over the hip or ankle or rest of the foot or leg. The right elbow has tenderness over the medial and lateral epicondyles. There is no olecranon bursitis or sign of septic joint. No sign of gout. Negative anterior/posterior drawer test. No pain on valgus or varus strain. No foot drop. Negative Homans sign. Negative Nava squeeze. areas have no erythema, mild to no swelling, mild-mod tenderness and no_abrasions\lacerations other than a few superficial abrasions to the left midshaft forearm that do not require suture repair. Not actively bleeding. nothing amenable to suture repair. No sign of infection. Full rom and full strength. no other swelling or ttp. slight antalgic gait secondary to pain only. brisk cap refill. 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 no shortening or rotation of the limbs or other obvious deformities to suggest trauma. SKIN: warm, dry, good_color. no rash. no other overlying skin changes to otherwise suggest trauma NEURO: cerebellar function intact, motor_intact and sensory_intact in injured_extremity. cranial nerves 2-12 intact - INFECTION CONTROL TRAVEL OUTSIDE OF THE [place] IN LAST 30 DAYS: No Course - Re-evaluation Re-evalutation: pt here s/p an accidental mechanical fall several hrs ago over her dog with left knee pain, right elbow pain, and some left forearm abrasions that aren't amenable to suture repair. her tdap is utd. she has pain meds at home that are controlling her pain she can cont to take as prescribed. her right elbow and left knee xr were neg for anything acute per rad and reviewed by myself. pt informed of findings. she didn't want any forms of immobilization other than her abrasions to her left forearm cleansed and dressed which nursing did. she didn't want any imaging of her left arm. she has no snuff box ttp. she is able to walk. she is neurononfocal. no pain anywhere else. well appearing. nontoxic. advised sx care. rice therapy. advised wound care. advised to f/u with pcp/ortho/pain management in 1-2 days. return for any worsening symptoms. vss. well appearing. satting well on ra. neurononfocal. pt understands and agrees to plan. On reexam, pt improved with tx listed. remained stable. nontoxic. well appearing. pain controlled. tolerating po. requesting to go home. neurononfocal. Documentation achieved through voice recording which my lead to some occasional accidental typographical errors. Extensive efforts have been made to proof read documentation to make sure these are the least as possible. Category Date Time Status Dressing/Wound Care (ED) NOW Care 11/21/18 16:51 Completed Left Knee [KNEE LEFT 3 VIEWS] [RAD] Stat Exams 11/21/18 16:50 Completed Right Elbow [ELBOW RIGHT AP/LAT] [RAD] Stat Exams 11/21/18 16:51 Completed - Vital Signs Vital signs: Temp Pulse Resp BP Pulse Ox 98.5 F 74 16 110/68 98 11/21/18 15:54 11/21/18 15:54 11/21/18 15:54 11/21/18 15:54 11/21/18 15:54 - Diagnostic Test Radiology reviewed: Image reviewed, Reports reviewed Radiology results interpreted by me: Knee X-Ray 11/21/18 16:50 IMPRESSION: NO FRACTURE. Elbow X-Ray 11/21/18 16:51 IMPRESSION: NO FRACTURE.Moderate effusion. Discharge - Discharge Clinical Impression: Effusion of elbow joint, right, Abrasion of left forearm, initial encounter Fall Qualifiers: Encounter type: initial encounter Qualified Code(s): W19.XXXA - Unspecified fall, initial encounter Knee sprain Qualifiers: Encounter type: initial encounter Involved ligament of knee: unspecified ligament Laterality: right Qualified Code(s): S83.91XA - Sprain of unspecified site of right knee, initial encounter Condition: Good Disposition: HOME, SELF-CARE Instructions: Ice & Elevation ([facility]), Oral Narcotic Medication ([facility]), Sprained Knee ([facility]) Additional Instructions: Ice, elevate, rest the areas. Continue to take your oxycodone for pain. Follow-up with your pain management doctor if your current pain medicine regimen is not controlling your pain. Clean abrasions with warm soapy water. Neosporin to the area. Monitor for signs of infection. Follow-up with your PCP/ortho/pain management in 1 to 2 days. Return for any worsening symptoms. Referrals: SMILEY VELÁZQUEZ MD [ACTIVE STAFF] - Follow up as needed
[2018-11-21 18:14] VITALS: BP 127/71
== END 2018-11-21 18:19 | disposition home or self-care (01) ==
LOC: ER 15:28
DX: S83.91XA Sprain of unspecified site of right knee, initial encounter (principal); S50.812A Abrasion of left forearm, initial encounter; M25.421 Effusion, right elbow; M25.521 Pain in right elbow; M25.562 Pain in left knee; W01.0XXA Fall on same level from slipping, tripping and stumbling without subsequent striking against object, initial encounter; I10 Essential (primary) hypertension; J44.9 Chronic obstructive pulmonary disease, unspecified; E66.9 Obesity, unspecified; G89.29 Other chronic pain; Z79.891 Long term (current) use of opiate analgesic
CPT/HCPCS: 99283

== ENCOUNTER → 2019-02-16 | Outpatient (CLI) | payer MEDICARE, OTHER ==
[2019-02-16 12:11] LABS: A TYPE INFLUENZA AG NEGATIVE (NEGATIVE); B INFLUENZA AG NEGATIVE (NEGATIVE)
== END ==
LOC: OD 11:33
PROVIDERS: ATTEND Family Medicine Geriatric Medicine
DX: R50.9 Fever, unspecified (principal); R05 Cough
CPT/HCPCS: 87804

== ENCOUNTER → 2019-09-22 | Outpatient (CLI) | payer MEDICARE, OTHER ==
--- NOTE | 2019-09-22 13:07 | RADIOLOGY REPORT (SQ) ---
EXAM DESCRIPTION: KNEE RIGHT 4 VIEWS IMAGES COMPLETED DATE/TIME: 09/22/2019 12:10 pm REASON FOR STUDY: PAIN IN RT KNEE M23.8X1 OTHER INTERNAL DERANGEMENTS OF RIGHT KNEE COMPARISON: None. NUMBER OF VIEWS: Four views. TECHNIQUE: AP, lateral, and both oblique radiographic images acquired of the right knee. LIMITATIONS: None. FINDINGS: MINERALIZATION: Normal. BONES: No acute fracture or dislocation. No worrisome bone lesions. No significant osteophytes. JOINT: No effusion. Faint chondrocalcinosis. OTHER: No other significant finding. IMPRESSION: FAINT CHONDROCALCINOSIS. NO ACUTE FINDINGS. TECHNICAL DOCUMENTATION: JOB ID: [id number] 2010 [employer]- All Rights Reserved Reading location - IP/workstation name: [email or web address]
== END ==
LOC: OD 11:38
PROVIDERS: ATTEND Physician Assistant
DX: M23.8X1 Other internal derangements of right knee (principal); M11.261 Other chondrocalcinosis, right knee; M25.561 Pain in right knee

== ENCOUNTER → 2019-12-13 | Emergency (ER) | payer MEDICARE, OTHER ==
[~2019-12-13] MED LIST: CEFEPIME 2 GM/D5W RTU 2 GM/50 ML RTUPB IV ONE; HYDROMORPHONE HCL INJ/PF 2 MG/ML AMPULE IV ONE; MORPHINE SULFATE 10 MG/ML INJ IV ONE; NORMAL SALINE 1000 ML 1,000 ML IV ONE; ONDANSETRON HCL INJ/PF 4 MG/2 ML SDV IV ONE
[2019-12-13 08:30] LABS: ABSOLUTE EOSINOPHILS # (AUTO) 0.1 10^3/uL (0.0-0.6); ABSOLUTE LYMPHOCYTES (AUTO) 1.6 10^3/uL (0.5-4.7); ABSOLUTE MONOCYTES (AUTO) 1.2 10^3/uL (0.1-1.4); ABSOLUTE NEUT (AUTO) 14.4 10^3/uL (1.7-8.2); BASOPHILS % (AUTO) 0.1 % (0-2); EOSINOPHILS % (AUTO) 0.4 % (0-6); HEMATOCRIT 43.5 % (36.0-47.0); HEMOGLOBIN 14.4 g/dL (12.0-15.5); LYMPHOCYTES % (AUTO) 9.4 % (13-45); MEAN CORPUSCULAR HGB CONC 33.1 g/dL (32.0-36.0); MEAN CORPUSCULAR VOLUME 85 fl (80-97); MONOCYTES % (AUTO) 6.9 % (3-13); PLATELET COUNT 411 10^3/uL (150-450); RED BLOOD COUNT 5.14 10^6/uL (3.72-5.28); RED CELL DISTRIBUTION WIDTH 15.2 % (11.5-14.0); SEGMENTED NEUTROPHILS % (AUTO) 83.2 % (42-78); TOTAL CELLS COUNTED % (AUTO) 100 %; WHITE BLOOD COUNT 17.3 10^3/uL (4.0-10.5)
[2019-12-13 08:37] LABS: ALBUMIN 4.5 g/dL (3.5-5.0); ALKALINE PHOSPHATASE 107 U/L (38-126); ANION GAP 8 (5-19); ASPARTATE AMINO TRANSFERASE 28 U/L (14-36); BILIRUBIN,DIRECT 0.3 mg/dL (0.0-0.4); BILIRUBIN,TOTAL 0.6 mg/dL (0.2-1.3); BLOOD UREA NITROGEN 8 mg/dL (7-20); CALCIUM 10.6 mg/dL (8.4-10.2); CARBON DIOXIDE 30 mmol/L (22-30); CHLORIDE 100 mmol/L (98-107); GLUCOSE 126 mg/dL (75-110); POTASSIUM 3.6 mmol/L (3.6-5.0); TOTAL PROTEIN 7.3 g/dL (6.3-8.2)
--- NOTE | 2019-12-13 09:11 | RADIOLOGY REPORT (SQ) ---
EXAM DESCRIPTION: CHEST SINGLE VIEW IMAGES COMPLETED DATE/TIME: 12/13/2019 7:50 am REASON FOR STUDY: nausea/vomiting COMPARISON: 04/18/2018 EXAM PARAMETERS: NUMBER OF VIEWS: One view. TECHNIQUE: Single frontal radiographic view of the chest acquired. RADIATION DOSE: NA LIMITATIONS: None. FINDINGS: LUNGS AND PLEURA: No opacities, masses or pneumothorax. No pleural effusion. MEDIASTINUM AND HILAR STRUCTURES: No masses. Contour normal. HEART AND VASCULAR STRUCTURES: Heart normal in size. Normal vasculature. BONES: No acute findings. HARDWARE: None in the chest. OTHER: No other significant finding. IMPRESSION: NO ACUTE RADIOGRAPHIC FINDING IN THE CHEST. TECHNICAL DOCUMENTATION: JOB ID: [id number] 2010 [employer]- All Rights Reserved Reading location - IP/workstation name: [email or web address]
[2019-12-13 10:24] LABS: APPEARANCE,URINE SLIGHTLY-CLOUDY; BILIRUBIN,URINE NEGATIVE (NEGATIVE); COLOR,URINE YELLOW; GLUCOSE, URINE NEGATIVE (NEGATIVE); KETONES,URINE NEGATIVE (NEGATIVE); LEUKOCYTE ESTERASE,URINE NEGATIVE (NEGATIVE); NITRITE,URINE NEGATIVE (NEGATIVE); PROTEIN,URINE 30 mg/dL (NEGATIVE); URINE SPECIFIC GRAVITY 1.014; UROBILINOGEN,URINE NEGATIVE mg/dL (<2.0)
--- NOTE | 2019-12-13 13:13 | RADIOLOGY REPORT (SQ) ---
EXAM DESCRIPTION: CT ABD/PELVIS WITH IV ORAL IMAGES COMPLETED DATE/TIME: 12/13/2019 12:04 pm REASON FOR STUDY: abd pain COMPARISON: CT abdomen and pelvis 05/18/2013 TECHNIQUE: CT scan of the abdomen performed with intravenous and oral contrast using helical scannin g technique with dynamic intravenous contrast injection. Images reviewed with lung, soft tissue, and bone windows. Reconstructed coronal and sagittal MPR images reviewed. Delayed images for evaluation o f the urinary system also acquired and evaluated. All images stored on PACS. All CT scanners at this facility use dose modulation, iterative reconstruc tion, and/or weight based dosing when appropriate to reduce radiation dose to as low as reasonably ac hievable (ALARA). [facility]: Dose Right [facility]: CareDose [facility]: Dose Right [facility]: Teradose 4D [facility]: Noteleaf CONTRAST TYPE AND DOSE: contrast/concentration: Isovue 350.00 mmol/ml; Total Contrast Delivered: 100 .0 ml; Total Saline Delivered: 51.9 ml RENAL FUNCTION: BUN 8; creatinine 0.51 RADIATION DOSE: CT Rad equipment meets quality standard of care and radiation dose reduction techniq ues were employed. CTDIvol: 13.1 - 16.8 mGy. DLP: 1753 mGy-cm. . LIMITATIONS: None. FINDINGS: LOWER CHEST: Clear apart from mild dependent atelectasis posteriorly at the lung bases. E nteric contrast is present within the visualized portion of the esophagus. LIVER: Normal size. No masses. Mild prominence of the intra and extrahepatic biliary system. SPLEEN: Normal size. No focal lesions. PANCREAS: No masses. No significant calcifications. No adjacent inflammation or peripancreatic fluid collections. Pancreatic duct not dilated. GALLBLADDER: Surgically absent. ADRENAL GLANDS: Unchanged intermediate density nodularity bilaterally previously demonstrated to be benign lipid rich adrenal adenomas. RIGHT KIDNEY AND URETER: No solid masses. A subcentimeter hypodensity in the interpolar right renal cortex is too small to definitively characterize. No significant calcifications. No hydronephrosis or hydroureter. LEFT KIDNEY AND URETER: No solid masses. No significant calcifications. No hydronephrosis or hydr oureter. AORTA AND VESSELS: Moderate calcified atherosclerotic plaque is present in the aorta and branch vesse ls without aneurysmal dilatation. No dissection. Renal arteries, SMA, celiac without stenosis. RETROPERITONEUM: No retroperitoneal adenopathy, hemorrhage or masses. BOWEL AND PERITONEAL CAVITY: Postoperative changes from prior bariatric procedure are present. There are several dilated loops of proximal small bowel measuring up to 4.5 cm in greatest diameter. In t he anterior lower abdomen just to the right of midline, there is abrupt transition to decompressed sm all bowel (sagittal image 37, coronal image 26) approximating the distal small bowel anastomotic sutu re line. There is also suggestion of mild swirling of the mesentery of the small bowel just proximal to the transition point. Additionally, a small amount of edema and ascites is present throughout th e central mesentery and about the liver and spleen and pooling in the dependent pelvis. APPENDIX: Not visualized. ABDOMINAL WALL: No masses. No hernias. BONES: No significant or acute findings. OTHER: No other significant finding. IMPRESSION: High-grade small bowel obstruction with transition point in anterior right lower quadran t near a distal small bowel anastomotic suture line. There is additionally suggestion of swirling of the small bowel mesenteries just proximal to the transition point, a finding which could be seen in the setting of internal hernia. Recommend general surgery consultation. COMMENT: Findings, discovered at 1258 hours 12/13/[address] Harris in the emergenc y department via phone at 1306 hours 12/13/2019. TECHNICAL DOCUMENTATION: JOB ID: [id number] Quality ID # [id number]: Final reports with documentation of one or more dose reduction techniques (e.g., Au tomated exposure control, adjustment of the mA and/or kV according to patient size, use of iterative reconstruction technique) 2010 [employer]- All Rights Reserved Reading location - IP/workstation name: [email or web address]
--- NOTE | 2019-12-13 15:07 | PDOC CONSULTATION ---
Consultation Consult Date: 12/13/19 Provider Consulted: SD HAYNES Consult reason:: Aminal pain, small bowel obstruction History of Present Illness Admission Date/PCP: CHANTE GARCIA PA-C History of Present Illness: SUZETTE MORALES is a 69 year old female, history of morbid obesity, history of gastric bypass 10 years ago laparoscopic active ident, history of cholecystectomy, , and appendectomy. The patient presents to the emergency room complaining of abdominal pain, obstipation, nausea, increased abdominal girth for the past few days. A CT scan of the abdomen pelvis has been done with IV and oral contrast in demonstrates the presence of a small bowel obstruction with a transition point just distal to the jejunojejunostomy anastomosis as well has a possible small bowel internal hernia. Her blood work reveals elevated white blood cell count of 17,000 and a normal lactic acid 1.9. Past Medical History Cardiac Medical History: Reports: Hypertension Denies: Myocardial Infarction Pulmonary Medical History: Reports: Asthma, Chronic Obstructive Pulmonary Disease (COPD) - not on home 02 Neurological Medical History: Denies: Seizures GI Medical History: Denies: Hepatitis, Hiatal Hernia Musculoskeltal Medical History: Reports: Arthritis, Fibromyalgia Hematology: Denies: Anemia, Sickle Cell Disease Past Surgical History Past Surgical History: Denies: Amputation, Hysterectomy, Mastectomy, Pacemaker Social History Smoking Status: Never Smoker Family History Family History: Reviewed & Not Pertinent Parental Family History Reviewed: No Children Family History Reviewed: No Sibling(s) Family History Reviewed.: No Medication/Allergy Home Medications: Albuterol Sulfate [Albuterol Sulfate Hfa] 1 - 2 puff IH Q4 PRN 12/02/14 Aspirin [Ecotrin] 81 mg PO DAILY 12/02/14 Atorvastatin Calcium [Lipitor 10 mg Tablet] 10 mg PO QHS 12/02/14 Cetirizine HCl/Pseudoephedrine [Zyrtec-D 12 Hour Tablet] 1 tab.sr PO Q12 12/02/14 Diltiazem HCl [Tiazac] 120 mg PO BID 12/02/14 Duloxetine HCl [Cymbalta] 60 mg PO DAILY 12/02/14 Fluticasone/Salmeterol [Advair 250-50 Diskus 28 dose] 1 inh IH DAILY 12/02/14 Hydrocodone/Acetaminophen [Hydrocodone-Acetamin 7.5-325] 1 each PO QID 12/02/14 Losartan/Hydrochlorothiazide [Hyzaar 50-12.5 Tablet] 1 each PO DAILY 12/02/14 Meloxicam [Mobic] 7.5 mg PO DAILY 12/02/14 Montelukast Sodium [Singulair 10 mg Tablet] 10 mg PO QHS 12/02/14 Nitroglycerin [Nitrostat 0.4 mg (1/150 Gr) Tabs 25/Bottle] 1 tab SL Q5MP PRN 12/02/14 Omeprazole [Prilosec] 40 mg PO DAILY 12/02/14 Zolpidem Tartrate [Ambien Cr] 12.5 mg PO QHS 12/02/14 Hydrocodone/Acetaminophen [Lortab 10-325 mg Tablet] 1 each PO Q6H 12/03/14 Oxycodone HCl/Acetaminophen [Percocet 7.5-325 Mg Tablet] 1 each PO Q6 PRN #50 tablet 02/14/16 Allergies/Adverse Reactions: Penicillins Allergy (Verified 11/21/18 15:37) HIVES/ITCHING Physical Exam Vital Signs: Temp Pulse Resp BP Pulse Ox 97.8 F 78 16 152/79 H 99 12/13/19 11:05 12/13/19 11:05 12/13/19 11:05 12/13/19 11:05 12/13/19 11:05 Intake & Output 12/12/19 12/13/19 12/14/19 06:59 06:59 06:59 Intake Total 1000 Balance 1000 Weight 169 kg General appearance: PRESENT: obese Head exam: PRESENT: atraumatic Eye exam: PRESENT: EOMI Mouth exam: PRESENT: neck supple Neck exam: PRESENT: full ROM Respiratory exam: PRESENT: clear to auscultation john Cardiovascular exam: PRESENT: RRR, tachycardia GI/Abdominal exam: PRESENT: distended, firm, tenderness - Diffusely, with peritoneal signs, other - Multiple surgical scars along the midline intra- abdominal cavity Rectal exam: PRESENT: deferred Extremities exam: PRESENT: full ROM Musculoskeletal exam: PRESENT: full ROM Neurological exam: PRESENT: alert, awake, oriented to person, oriented to place Psychiatric exam: PRESENT: appropriate affect Results Laboratory Results: 12/13/19 07:57 12/13/19 07:57 12/13/19 12/13/19 12/13/19 07:57 07:57 08:28 WBC 17.3 H RBC 5.14 Hgb 14.4 Hct 43.5 MCV 85 MCH 28.0 MCHC 33.1 RDW 15.2 H Plt Count 411 Seg Neutrophils % 83.2 H Sodium 137.9 Potassium 3.6 Chloride 100 Carbon Dioxide 30 Anion Gap 8 BUN 8 Creatinine 0.51 L Est GFR ( Amer) > 60 Glucose 126 H Lactic Acid 1.4 Calcium 10.6 H Total Bilirubin 0.6 AST 28 Alkaline Phosphatase 107 Total Protein 7.3 Albumin 4.5 Lipase 88.4 Urine Color Urine Appearance Urine pH Ur Specific Biggers Urine Protein Urine Glucose (UA) Urine Ketones Urine Blood Urine Nitrite Ur Leukocyte Esterase Urine WBC (Auto) Urine RBC (Auto) 12/13/19 09:57 WBC RBC Hgb Hct MCV MCH MCHC RDW Plt Count Seg Neutrophils % Sodium Potassium Chloride Carbon Dioxide Anion Gap BUN Creatinine Est GFR ( Amer) Glucose Lactic Acid Calcium Total Bilirubin AST Alkaline Phosphatase Total Protein Albumin Lipase Urine Color YELLOW Urine Appearance SLIGHTLY-CLOUDY Urine pH 8.0 Ur Specific Biggers 1.014 Urine Protein 30 H Urine Glucose (UA) NEGATIVE Urine Ketones NEGATIVE Urine Blood NEGATIVE Urine Nitrite NEGATIVE Ur Leukocyte Esterase NEGATIVE Urine WBC (Auto) 1 Urine RBC (Auto) 2 Impressions: Abdomen/Pelvis CT 12/13/19 00:00 IMPRESSION: High-grade small bowel obstruction with transition point in anterior right lower quadrant near a distal small bowel anastomotic suture line. There is additionally suggestion of swirling of the small bowel mesenteries just proximal to the transition point, a finding which could be seen in the setting of internal hernia. Recommend general surgery consultation. Assessment & Plan - Diagnosis (1) Complete small bowel obstruction Is this a current diagnosis for this admission?: Yes (2) Hernia of small intestine Is this a current diagnosis for this admission?: Yes (3) Status post gastric bypass for obesity Is this a current diagnosis for this admission?: Yes - Plan Summary Plan Summary: Assessment: Pain, distention, peritoneal signs, obstipation for a few days Leukocytosis 17,000 Status post laparoscopic gastric bypass 10 years ago revised in hospital CT scan abdomen pelvis reveals a small bowel obstruction with transition point to just distal to the jejunojejunostomy as well as possible small bowel internal hernia Plan: This patient has most likely complication secondary to her laparoscopic gastric bypass and requires an operation urgently. However, this surgery requires a level of expertise well above and beyond my skill level. My recommendation is to transfer the patient to a bariatric center where a bariatric surgeon with a higher level of expertise than ling can take care of this patient to urgent surgical complication following her gastric bypass This has been communicated to the emergency room physician.
--- NOTE | 2019-12-13 15:07 | RADIOLOGY REPORT (SQ) ---
EXAM DESCRIPTION: CHEST SINGLE VIEW IMAGES COMPLETED DATE/TIME: 12/13/2019 2:50 pm REASON FOR STUDY: ng tube placement COMPARISON: Chest radiograph earlier same day NUMBER OF VIEWS: One view. TECHNIQUE: Single frontal radiographic view of the chest acquired. LIMITATIONS: None. FINDINGS: LUNGS AND PLEURA: No opacities, masses or pneumothorax. No pleural effusion. MEDIASTINUM AND HILAR STRUCTURES: No masses. Contour normal. HEART AND VASCULAR STRUCTURES: Heart normal in size. Normal vasculature. BONES: No acute findings. HARDWARE: Interval placement of an enteric tube with the tip projecting over the left upper quadrant. OTHER: No other significant finding. IMPRESSION: Interval placement of enteric tube with the tip projecting over the left upper quadrant. No acute pulmonary process. TECHNICAL DOCUMENTATION: JOB ID: [id number] 2010 [employer]- All Rights Reserved Reading location - IP/workstation name: [email or web address]
--- NOTE | 2019-12-13 18:07 | ER Document Report ---
Doctor's Note Notes: 12/13/19 18:06 I received patient in signout from Dr. Harris. I discussed with [facility] bariat[facility] surgery team, she has been accepted by Dr. Ronak Montano
--- NOTE | 2019-12-13 20:05 | ER Document Report ---
Entered by DEEPA MONTOYA SCRIBE 12/13/19 0825 Acting as scribe for:ANASTASIIA REYES MD ED GI/ - General Chief Complaint: Abdominal Pain Stated Complaint: ABDOMINAL PAIN/VOMITTING Time Seen by Provider: 12/13/19 07:54 Primary Care Provider: CHANTE GARCIA PA-C [Primary Care Provider] - Follow up as needed Information source: Patient Notes: This 69 year old female patient presents to the emergency department today with constant abdominal pain since 11 pm last night. Patient states she ate a lot last night and may be the reason for the pain. Patient states she took oxycodone around 3 am this morning without relief. Patient states she vomited a small amount and then took phenergan around 5 am this morning. Patient reports diarrhea that was normal in color and without blood. Patient reports a history of GERD, gastric bypass, appendectomy, and cholecystectomy. TRAVEL OUTSIDE OF THE [place] IN LAST 30 DAYS: No - Related Data Allergies/Adverse Reactions: Penicillins Allergy (Verified 11/21/18 15:37) HIVES/ITCHING Home Medications: diltiazem, mycarda, prozac, nexium, Past Medical History - General Information source: Patient - Social History Smoking Status: Never Smoker Cigarette use (# per day): No Lives with: Family Family History: Reviewed & Not Pertinent Patient has homicidal ideation: No - Past Medical History Cardiac Medical History: Reports: Hx Hypertension Pulmonary Medical History: Reports: Hx Asthma, Hx COPD - not on home 02 GI Medical History: Reports: Hx Gastroesophageal Reflux Disease Musculoskeletal Medical History: Reports Hx Arthritis, Reports Hx Fibromyalgia Past Surgical History: Reports: Hx Appendectomy, Hx Section, Hx Cholecystectomy, Hx Gastric Bypass Surgery - Immunizations Immunizations up to date: Yes Hx Diphtheria, Pertussis, Tetanus Vaccination: Yes Review of Systems - Review of Systems Constitutional: No symptoms reported EENT: No symptoms reported Cardiovascular: No symptoms reported Respiratory: No symptoms reported Gastrointestinal: See HPI, Abdominal pain, Diarrhea, Vomiting. denies: Blood streaked bowels Genitourinary: No symptoms reported Female Genitourinary: No symptoms reported Musculoskeletal: No symptoms reported Skin: No symptoms reported Hematologic/Lymphatic: No symptoms reported Neurological/Psychological: No symptoms reported -: Yes All other systems reviewed and negative Physical Exam - Vital signs Vitals: Temp Pulse Resp BP Pulse Ox 98 F 100 16 163/111 H 99 12/13/19 06:25 12/13/19 06:25 12/13/19 06:25 12/13/19 06:25 12/13/19 06:25 - General General appearance: Appears well, Alert - HEENT Head: Normocephalic, Atraumatic Eyes: Normal Pupils: PERRL - Respiratory Respiratory status: No respiratory distress Chest status: Nontender Breath sounds: Normal Chest palpation: Normal - Cardiovascular Rhythm: Regular Heart sounds: Normal auscultation - Abdominal Inspection: Normal Distension: Distended Tenderness: Tender - All quadrants - Extremities General upper extremity: Normal inspection. No: Edema General lower extremity: Normal inspection. No: Edema - Neurological Neuro grossly intact: Yes Cognition: Normal Orientation: AAOx4 Speech: Normal - Psychological Associated symptoms: Normal affect, Normal mood - Skin Skin Temperature: Warm Skin Moisture: Dry Skin Color: Normal Course - Re-evaluation Re-evalutation: 12/13/19 16:04 Patient's abdominal pain continues, and an NG tube is in place at this time. Patient has been seen by the surgeon Dr. Kearns. 12/13/19 16:12 Because of prior gastric bypass surgery our surgeon does not operate on patients who have had prior procedures left such as this therefore patient has to be transferred to another hospital. 12/13/19 17:22 Chart update on progress on transferring patient to another facility that has capability of operating on a prior gastric bypass surgery patient. [facility] is on regional diversion, [facility] is on diversion, [facility] does not have surgery instructional facilitator today who operates on prior gastric bypass graft patient. Pending at this time awaiting [facility] to officially receive patient in transfer. - Vital Signs Vital signs: Temp Pulse Resp BP Pulse Ox 97.8 F 78 16 152/79 H 99 12/13/19 11:05 12/13/19 11:05 12/13/19 11:05 12/13/19 11:05 12/13/19 11:05 12/13/19 16:14 Vital signs are stable - Laboratory Result Diagrams: 12/13/19 07:57 12/13/19 07:57 Laboratory results interpreted by me: 12/13/19 12/13/19 12/13/19 07:57 07:57 09:57 WBC 17.3 H RDW 15.2 H Lymph % (Auto) 9.4 L Absolute Neuts (auto) 14.4 H Seg Neutrophils % 83.2 H Creatinine 0.51 L Glucose 126 H Calcium 10.6 H ALT 43 H Urine Protein 30 H Laboratories show elevated white blood cell count and normal lactic acid and lipase and urinalysis is clear without any infection. - Diagnostic Test Radiology reviewed: Image reviewed, Reports reviewed Radiology results interpreted by me: 12/13/19 16:14 Chest x-ray shows NG tube in place no infiltrate no other complication CT scan of abdomen and pelvis with IV and oral contrast shows a high-grade small bowel obstruction at the transition point is at the right lower quadrant distal to the anastomotic suture line of her prior gastric bypass surgery. There is swirling of the small bowel mesentery just proximal to this transition point which highly suggest an internal hernia. No other complication was seen. - Transfer of Care Notes: 12/13/19 17:49 Care of patient transferred to Dr. Motley. Pending acceptance of transfer to another facility is still open at this time most recent success has been talking and discussing case with the [facility] and [facility] who indicated that they would take the patient in transfer just and at this time with just waiting for their official acceptance. Critical Care Note - Critical Care Note Total time excluding time spent on procedures (mins): 49 - Management of patient with abdominal pain with elevated white blood cell count consistent with infection or inflammation and a small bowel obstruction requiring surgery. Discussion with hospital staff regarding prior gastric bypass graft surgery requ iring transfer to another hospital. Time spent on transferring patient to another hospital and management of pain and infection. Discharge - Discharge Clinical Impression: Complete small bowel obstruction, Status post gastric bypass for obesity, Leukocytosis, Abdominal pain Condition: Critical Disposition: Tertiary-Other Referrals: CHANTE GARCIA PA-C [Primary Care Provider] - Follow up as needed I personally performed the services described in the documentation, reviewed and edited the documentation which was dictated to the scribe in my presence, and it accurately records my words and actions.
--- NOTE | 2019-12-13 20:21 | EKG REPORT ---
SEVERITY:- ABNORMAL ECG - SINUS RHTYM WITH APCs CONSIDER ANT OR AGE INDETERMINATE : Confirmed by: Kiran Flower 13-Dec-2019 20:20:33
--- NOTE | 2019-12-13 23:47 | ER Document Report ---
Doctor's Note Notes: 12/13/19 23:46 Transportation has arrived for patient. I went in to reassess her, she is well- appearing, vital signs stable. She is appropriate for transfer at this time.
[2019-12-13 23:48] VITALS: BP 151/98
== END | disposition short-term general hospital (02) ==
LOC: ER 06:17
DX: K56.601 Complete intestinal obstruction, unspecified as to cause (principal); R19.7 Diarrhea, unspecified; R11.2 Nausea with vomiting, unspecified; D72.829 Elevated white blood cell count, unspecified; K46.9 Unspecified abdominal hernia without obstruction or gangrene; E66.9 Obesity, unspecified; I10 Essential (primary) hypertension; J44.9 Chronic obstructive pulmonary disease, unspecified; K21.9 Gastro-esophageal reflux disease without esophagitis; Z98.84 Bariatric surgery status; Z90.49 Acquired absence of other specified parts of digestive tract; Z79.899 Other long term (current) drug therapy; Z79.891 Long term (current) use of opiate analgesic; Z79.82 Long term (current) use of aspirin; Z79.51 Long term (current) use of inhaled steroids; Z88.0 Allergy status to penicillin
CPT/HCPCS: 93005; 96376; 99285; 96361; 96375; 96365; 36415; 87040; 83605; 83690; 85025; 80053; 81001; 71045; 74177; 93010; J2270; J1170; J2405; J7030; J0692

== ENCOUNTER → 2020-02-16 | Outpatient (CLI) | payer MEDICARE, OTHER ==
[2020-02-16 09:20] LABS: ABSOLUTE LYMPHOCYTES (AUTO) 2.6 10^3/uL (0.5-4.7); ABSOLUTE MONOCYTES (AUTO) 0.7 10^3/uL (0.1-1.4); ABSOLUTE NEUT (AUTO) 5.1 10^3/uL (1.7-8.2); BASOPHILS % (AUTO) 0.3 % (0-2); EOSINOPHILS % (AUTO) 0.6 % (0-6); HEMATOCRIT 36.1 % (36.0-47.0); HEMOGLOBIN 11.9 g/dL (12.0-15.5); LYMPHOCYTES % (AUTO) 30.7 % (13-45); MEAN CORPUSCULAR HEMOGLOBIN 27.2 pg (27.0-33.4); MEAN CORPUSCULAR VOLUME 82 fl (80-97); MONOCYTES % (AUTO) 8.8 % (3-13); PLATELET COUNT 335 10^3/uL (150-450); RED BLOOD COUNT 4.39 10^6/uL (3.72-5.28); RED CELL DISTRIBUTION WIDTH 14.2 % (11.5-14.0); SEGMENTED NEUTROPHILS % (AUTO) 59.6 % (42-78); TOTAL CELLS COUNTED % (AUTO) 100 %; WHITE BLOOD COUNT 8.5 10^3/uL (4.0-10.5)
[2020-02-16 09:36] LABS: ALBUMIN 4.2 g/dL (3.5-5.0); ALKALINE PHOSPHATASE 84 U/L (38-126); ANION GAP 9 (5-19); ASPARTATE AMINO TRANSFERASE 32 U/L (14-36); BILIRUBIN,DIRECT 0.2 mg/dL (0.0-0.4); BILIRUBIN,TOTAL 0.4 mg/dL (0.2-1.3); BLOOD UREA NITROGEN 17 mg/dL (7-20); CALCIUM 9.9 mg/dL (8.4-10.2); CARBON DIOXIDE 30 mmol/L (22-30); CHLORIDE 100 mmol/L (98-107); CHOLESTEROL 201.42 mg/dL (0-200); GLUCOSE 92 mg/dL (75-110); POTASSIUM 4.2 mmol/L (3.6-5.0); TOTAL PROTEIN 6.8 g/dL (6.3-8.2); TRIGLYCERIDES 136 mg/dL (<150)
[2020-02-16 09:47] LABS: DIRECT LDL 73 mg/dL (<100)
[2020-02-16 10:11] LABS: FERRITIN 5.14 ng/mL (11.1-264.0)
== END ==
LOC: OD 08:34
PROVIDERS: ATTEND Family Medicine
DX: E55.9 Vitamin D deficiency, unspecified (principal); I10 Essential (primary) hypertension; E78.5 Hyperlipidemia, unspecified; Z13.1 Encounter for screening for diabetes mellitus; D50.9 Iron deficiency anemia, unspecified
CPT/HCPCS: 36415; 80053; 80061; 82306; 82728; 83540; 83550; 85025

== ENCOUNTER → 2020-03-07 | Outpatient (CLI) | payer MEDICARE, OTHER ==
[2020-03-07 14:07] VITALS: BP 99/52
--- NOTE | 2020-03-07 14:07 | ER RDC ASSESSMENT REPORT ---
Intake - In the Last 14 days Have you traveled outside [place]?: No Have you been in close contact with someone CONFIRMED: No Worked in Healthcare?: No - Symptoms Subjective Fever(Jber feverish): No Chills: No Muscule Aches: No Runny Nose: Yes Sore Throat: No Cough (New or worsening chronic cough): No Shortness of breath: No Nausea or Vomiting: No Headache: No Abdominal Pain: No Diarrhea(3 or more loose stools in last 24 hours): No - Do you have any of the following Chronic lung disease: Asthma or emphysema or COPD: Yes Chronic Lung Disease Comment: History of COPD Cystic Fibrosis: No Diabetes: No High Blood Pressure: Yes Cardiovascular Disease: Yes Chronic Kidney Disease: No Chronic Liver Disease: No Chronic blood disorder like Sickle Cell Disease: No Weak immune system due to disease or medication: No Neurologic condition that limits movement: No Developmental delay - Moderate to Severe: No Recent (within past 2 weeks) or current : No Morbid Obesity (>100 pounds over ideal weight): No Obesity Comment: Height 5 feet 2 inches weight 174 pounds - Objective Temperature: 98.0 F Pulse Rate: 65 Respiratory Rate: 18 Blood Pressure: 99/52 O2 Sat by Pulse Oximetry: 93 Objective: Given above, testing performed: If Testing Performed: Test Specimen Type Sent to General - General Information source: Patient Notes: Patient here at [facility] for Covid testing patient has had congestion dizziness sinus pressure for a couple of weeks patient is known to Dr. Parkinson who has been treating her for sinus infection patient reports has recurrent sinus infections for 40 to 50 years. Just finished dose of Keflex with no improvement. PCP requests patient also be tested for Covid to rule out patient denies any known positive exposure to Covid that she is aware of. - Related Data Allergies/Adverse Reactions: Penicillins Allergy (Verified 11/21/18 15:37) HIVES/ITCHING Past Medical History - General Information source: Patient - Social History Smoking Status: Former Smoker - QUIT 25 years ago Family History: Reviewed & Not Pertinent - Past Medical History Cardiac Medical History: Reports: Hx Hypertension Denies: Hx Heart Attack Pulmonary Medical History: Reports: Hx Asthma, Hx COPD - not on home 02 Neurological Medical History: Denies: Hx Cerebrovascular Accident, Hx Seizures Renal/ Medical History: Denies: Hx Peritoneal Dialysis GI Medical History: Reports: Hx Gastroesophageal Reflux Disease. Denies: Hx Hepatitis, Hx Hiatal Hernia, Hx Ulcer Musculoskeletal Medical History: Reports Hx Arthritis, Reports Hx Fibromyalgia Infectious Medical History: Denies: Hx Hepatitis Past Surgical History: Reports: Hx Appendectomy, Hx Section, Hx Cholecystectomy, Hx Gastric Bypass Surgery. Denies: Hx Hysterectomy, Hx Mastectomy, Hx Open Heart Surgery, Hx Pacemaker Physical Exam - General General appearance: Appears well, Alert In distress: None Notes: PHYSICAL EXAMINATION: GENERAL: Well-appearing and in no acute distress. HEAD: Atraumatic, normocephalic. EYES: sclera anicteric, conjunctiva are normal. ENT: nares patent. Moist mucous membranes. NECK: Normal range of motion, supple without lymphadenopathy LUNGS: CTAB and equal. No wheezes rales or rhonchi. Respiration even and unlabored lung sounds clear. HEART: Regular rate and rhythm without murmurs ABDOMEN: Soft, nontender, normal bowel sounds, no guarding. EXTREMITIES: Normal range of motion, no pitting edema. No cyanosis. NEUROLOGICAL: Cranial nerves grossly intact. Normal speech. Normal gait. PSYCH: Normal mood, normal affect. SKIN: Warm, Dry, normal turgor, no rashes or lesions noted Diagnostic Results Laboratory Results: Pending strep culture pending Covid testing results. Patient provided instructions regarding Covid to include: As a person under investigation for Covid 19, the [place] department of Health and Human Services, division of public health advises you to adhere to the following guidance until your test results are reported to you. If your test result is positive, you will receive additional information from your provider and your local health department at that time. Remain at home until you are cleared by the health provider or public health authorities. Keep a log of visitors to your home, notify any visitors to your home of your isolation status. If you plan to move to a new address or leave the county, notify the local health department in your County. Call your doctor or seek care if you have an urgent medical need. Before seeking medical care, call ahead to get instructions from the provider before arriving at the medical office clinic or hospital. Notify them that you are being tested for the virus that causes Covid 19 so that arrangements can be made, as necessary, to prevent transmission to others in the healthcare setting. Next, notify the local health department in your county. If a medical emergency arises and you need to call 911, inform the first responders that you are being tested for the virus that causes Covid 19. Next, notify the local health department in your county. Patient Education/Counseling Counseling/Education: Patient presents with upper respiratory symptoms worrisome for possible Covid 19. Patient does not have emergency worring symptoms such as difficulty breathing, shortness of breath, chest pain, pressure, confusion or cyanosis. Patient appears suitable for discharge. Patient instructed to follow-up with Dr. Parkinson today. To ED for persistent or worsening symptoms. Patient's vital signs are stable and patient is nontoxic in appearance. Good return precautions have been discussed with patient, patient verbalized understanding and is agreeable with discharge plan of care at this time. RDC Discharge - Discharge Clinical Impression: Effusion of elbow joint, right, Encounter for screening laboratory testing for COVID-19 virus Upper respiratory infection Qualifiers: URI type: unspecified URI Qualified Code(s): J06.9 - Acute upper respiratory infection, unspecified Condition: Stable Disposition: Home; Selfcare
== END ==
LOC: RDC 13:24
PROVIDERS: ATTEND Nurse Practitioner Family
DX: Z20.828 Contact with and (suspected) exposure to other viral communicable diseases (principal); J06.9 Acute upper respiratory infection, unspecified; R09.89 Other specified symptoms and signs involving the circulatory and respiratory systems; M79.7 Fibromyalgia; J44.9 Chronic obstructive pulmonary disease, unspecified; I10 Essential (primary) hypertension; I25.10 Atherosclerotic heart disease of native coronary artery without angina pectoris; R42 Dizziness and giddiness; M25.421 Effusion, right elbow; K21.9 Gastro-esophageal reflux disease without esophagitis; Z87.891 Personal history of nicotine dependence; Z88.0 Allergy status to penicillin
CPT/HCPCS: 87070; 87880; 99201; U0003; G0463; C9803; 87635; 99211